=== PATIENT | male | born 2000 | race Caucasian/White ===

== ENCOUNTER 2022-07-12 00:07 | Emergency (ER) | payer OTHER ==
[2022-07-12] MEDS ORDERED: Fentanyl 100 MCG/2 ML VIAL ONE ×3 (00:21→01:34)
[2022-07-12] MEDS ORDERED: Boostrix 0.5 ML (Tdap) VIAL (>/=7 yrs of age) ONE (00:32)
[2022-07-12 00:47] LABS: #Basophils 0.1 10x3/uL (0.0-0.2); #Eosinphils 0.1 10x3/uL (0.0-0.5); #Monocytes 0.7 10x3/uL (0.0-1.1); %Basophils 0.7 % (0.0-2.0); %Eosinophils 0.8 % (0.0-6.0); %Lymphocytes 30.8 % (18.0-47.0); %Monocytes 7.3 % (0.0-10.0); %Neutrophils 60.1 % (40.0-75.0); Hemoglobin 10.9 g/dL (13.5-17.5); Mean Corpuscular HGB CONC 34.1 g/dL (32.0-36.0); Mean Corpuscular Hemoglobin 31.3 pg (27.0-33.0); Mean Platelet Volume 9.7 fl (7.4-10.4); Platelet Count 285 10x3/uL (150-450); RBC Distribution Width 12.5 % (11.5-14.5); Red Blood Cell (RBC) Count 3.48 10x6/uL (4.32-5.72); White Blood Cell (WBC) Count 9.9 10x3/uL (3.5-10.5)
[2022-07-12 00:50] LABS: INR-International Normal Ratio 1.3; PTT 27.8 sec (22.0-33.0); Prothrombin Time 14.4 sec (9.5-12.1)
[2022-07-12 01:00] LABS: ALT (SGPT) 8 U/L (8-55); AST (SGOT) 13 U/L (10-45); Albumin 2.8 g/dL (3.5-5.0); Alkaline Phosphatase 34 U/L (50-130); Anion Gap 19 mmol/L (10-20); BUN (Urea Nitrogen) 5 mg/dL (8.4-21.0); Bilirubin, Total 0.6 mg/dL (0.2-1.2); Calc. Creatinine Clearance 0 mL/min (70-130); Calcium 7.6 mg/dL (7.8-10.44); Carbon Dioxide 14 mmol/L (22-29); Chloride 102 mmol/L (98-107); Estimated GFR 148; Globulin 1.6 g/dL (2.4-3.5); Glucose 64 mg/dL (70-105); Potassium 3.5 mmol/L (3.5-5.1); Protein, Total 4.4 g/dL (6.0-8.3); Sodium 131 mmol/L (136-145)
== END 2022-07-12 02:34 | disposition short-term general hospital (02) ==
LOC: CSHERS 00:07
DX: T23.301A Burn of third degree of right hand, unspecified site, initial encounter (principal); T25.321A Burn of third degree of right foot, initial encounter; T22.311A Burn of third degree of right forearm, initial encounter; T22.212A Burn of second degree of left forearm, initial encounter; X19.XXXA Contact with other heat and hot substances, initial encounter
CPT/HCPCS: 80053; 85025; 85610; 85730; 90471; 90715; 96374; 96376; J3010